=== PATIENT | female | born 1970 | race Asian ===

== ENCOUNTER 2017-10-10 13:18 | Inpatient (IN) | payer OTHER ==
[~2017-10-10] VITALS: Ht 162.6 cm; Wt 91.8 kg
[2017-10-10 13:22] VITALS: Ht 162.6 cm; Wt 91.8 kg
[2017-10-10 14:13] LABS: CALCIUM 8.4 mg/dL (8.5-10.1); CARBON DIOXIDE 26.5 mmol/L (21-32); CHLORIDE SERUM 105 mmol/L (98-107); GFR1 > 60 mL/min; GLUCOSE SERUM 176 mg/dL (74-106); POTASSIUM SERUM 3.7 mmol/L (3.5-5.1); SODIUM SERUM 142 mmol/L (136-145)
[2017-10-10 14:18] LABS: ALBUMIN 3.6 g/dL (3.4-5.0); ALKALINE PHOSPHATASE 75 U/L (46-116); ALT/SGPT 33 U/L (14-59); AST/SGOT 21 U/L (15-37)
[2017-10-10 14:23] LABS: BASOPHIL % 0.8 % (0-2); PLATELET COUNT 219 x10^3mcL (130-400); RED CELL DISTRIBUTION WIDTH 13.1 % (11.5-14.5)
[2017-10-10] MEDS ORDERED: AMITRIPTYLINE H10 MG (16:17)
[2017-10-10 17:04] VITALS: BP 134/85
[2017-10-10 17:15] LABS: PHOSPHOROUS 3.7 mg/dL (2.5-4.9)
[2017-10-10 17:16] LABS: CHOLESTEROL/HDL RATIO 7.2
[2017-10-10 17:21] LABS: T3 TOTAL 1.18 ng/mL
[2017-10-10 17:25] LABS: FREE T4 1.03 ng/dL (0.76-1.46); FREE THYROXINE INDEX 2.6 ug/dL (1.4-4.5); T4(THYROXINE) 7.3 ug/dL (4.7-13.3)
[2017-10-10 17:45] VITALS: BP 143/94
[2017-10-10 19:14] VITALS: BP 143/94
[2017-10-10 21:51] VITALS: BP 109/55
[2017-10-11 05:41] VITALS: BP 93/54
[2017-10-11 08:10] LABS: microscopic required? YES; urine erythrocyte NEGATIVE (NEGATIVE)
[2017-10-11 08:11] LABS: BASOPHIL % 1.2 % (0-2); PLATELET COUNT 195 x10^3mcL (130-400)
[2017-10-11 08:29] LABS: AMPHETAMINE QUAL UR NONE DETECTED (NEG <=1000)
[2017-10-11 08:35] LABS: CALCIUM 8.2 mg/dL (8.5-10.1); CARBON DIOXIDE 24.6 mmol/L (21-32); CHLORIDE SERUM 108 mmol/L (98-107); CREATININE SERUM 0.8 mg/dL (0.6-1.0); GFR1 > 60 mL/min; GLUCOSE SERUM 119 mg/dL (74-106); POTASSIUM SERUM 3.8 mmol/L (3.5-5.1); SODIUM SERUM 143 mmol/L (136-145)
[2017-10-11 08:55] VITALS: BP 108/67
[2017-10-11 09:00] VITALS: BP 105/56
[2017-10-11 13:06] VITALS: BP 106/64
[2017-10-11 16:49] VITALS: BP 104/58
[2017-10-11 21:28] VITALS: BP 115/55
[2017-10-12 06:02] LABS: BASOPHIL % 1.1 % (0-2); PLATELET COUNT 189 x10^3mcL (130-400)
[2017-10-12 06:07] VITALS: BP 96/51
[2017-10-12 06:46] LABS: CALCIUM 8.2 mg/dL (8.5-10.1); CARBON DIOXIDE 26.6 mmol/L (21-32); CHLORIDE SERUM 107 mmol/L (98-107); CREATININE SERUM 0.9 mg/dL (0.6-1.0); GFR1 > 60 mL/min; GLUCOSE SERUM 109 mg/dL (74-106); POTASSIUM SERUM 4.1 mmol/L (3.5-5.1); SODIUM SERUM 139 mmol/L (136-145)
[2017-10-12 14:41] VITALS: BP 143/80
[2017-10-12 16:47] VITALS: BP 143/80
[2017-10-12] MEDS ORDERED: LIPI20 PO (17:47)
[2017-10-12] MEDS ORDERED: NEU100 PO (17:48)
[2017-10-12] MEDS ORDERED: GLU500 PO (17:49)
[2017-10-12 17:53] VITALS: BP 140/76
[2017-10-12 17:54] VITALS: BP 140/63
== END 2017-10-12 18:50 | disposition home or self-care (01) | DRG 48 ==
LOC: ED 13:18 → DU 15:12
PROVIDERS: Emergency Medicine; Family Medicine
DX: G90.8 Other disorders of autonomic nervous system (principal); E66.01 Morbid (severe) obesity due to excess calories; K21.9 Gastro-esophageal reflux disease without esophagitis; M19.90 Unspecified osteoarthritis, unspecified site; F17.210 Nicotine dependence, cigarettes, uncomplicated; G89.29 Other chronic pain; F41.1 Generalized anxiety disorder; M25.562 Pain in left knee; E11.9 Type 2 diabetes mellitus without complications; E78.5 Hyperlipidemia, unspecified; M25.561 Pain in right knee; L40.9 Psoriasis, unspecified; Z90.49 Acquired absence of other specified parts of digestive tract; Z82.49 Family history of ischemic heart disease and other diseases of the circulatory system; Z83.3 Family history of diabetes mellitus; Z82.3 Family history of stroke; Z68.35 Body mass index [BMI] 35.0-35.9, adult
CPT/HCPCS: 83880; 84439; A9500; J2785; J7030; J7613; Q0092

== ENCOUNTER 2018-10-05 20:48 | Emergency (ER) | payer OTHER ==
[~2018-10-05] VITALS: Ht 160 cm; Wt 106.1 kg
[~2018-10-05 20:48] MED LIST: AMITRIPTYLINE H10 MG; GLU500 PO; LIPI20 PO; NEU100 PO
[2018-10-05 20:54] VITALS: Ht 160 cm; Wt 106.1 kg
[2018-10-05 22:10] VITALS: BP 125/88
== END 2018-10-05 22:10 | disposition home or self-care (01) ==
LOC: ED 20:48
DX: J06.9 Acute upper respiratory infection, unspecified (principal); J20.9 Acute bronchitis, unspecified; G89.29 Other chronic pain; M25.561 Pain in right knee; M25.562 Pain in left knee; F17.210 Nicotine dependence, cigarettes, uncomplicated; M19.90 Unspecified osteoarthritis, unspecified site
CPT/HCPCS: J7613

== ENCOUNTER 2019-03-09 06:08 | Emergency (ER) | payer OTHER ==
[~2019-03-09] VITALS: Ht 160 cm; Wt 87.1 kg
[2019-03-09 06:16] VITALS: Ht 160 cm; Wt 87.1 kg
[2019-03-09 08:31] LABS: CALCIUM 7.9 mg/dL (8.5-10.1); CARBON DIOXIDE 24.4 mmol/L (21-32); CHLORIDE SERUM 106 mmol/L (98-107); CREATININE SERUM 0.9 mg/dL (0.6-1.0); GFR1 > 60 mL/min; GLUCOSE SERUM 133 mg/dL (74-106); POTASSIUM SERUM 3.8 mmol/L (3.5-5.1); SODIUM SERUM 143 mmol/L (136-145)
[2019-03-09 08:37] LABS: ALBUMIN 3.5 g/dL (3.4-5.0); ALKALINE PHOSPHATASE 89 U/L (46-116); ALT/SGPT 35 U/L (14-59); AST/SGOT 17 U/L (15-37); BILIRUBIN TOTAL 0.5 mg/dL (0.20-1.00); TOTAL PROTEIN, SERUM 7.2 g/dL (6.4-8.2)
[2019-03-09 09:00] LABS: BASOPHIL % 1.5 % (0-2); PLATELET COUNT 228 x10^3mcL (130-400); RED CELL DISTRIBUTION WIDTH 13.4 % (11.5-14.5)
[2019-03-09 09:55] VITALS: BP 102/59
[2019-03-09 10:07] LABS: microscopic required? YES; urine erythrocyte TRACE (NEGATIVE)
== END 2019-03-09 09:55 | disposition home or self-care (01) ==
LOC: ED 06:08
PROVIDERS: Specialist
DX: N39.0 Urinary tract infection, site not specified (principal); E11.9 Type 2 diabetes mellitus without complications; Z90.49 Acquired absence of other specified parts of digestive tract
CPT/HCPCS: 82962; 87491; 87591; J1885; Q0162

== ENCOUNTER 2019-05-31 07:33 | Emergency (ER) | payer OTHER ==
[~2019-05-31] VITALS: Ht 160 cm; Wt 85.7 kg
[2019-05-31 07:56] VITALS: BP 132/80; Ht 160 cm; Wt 85.7 kg
== END 2019-05-31 08:30 | disposition home or self-care (01) ==
LOC: ED 07:33
DX: N39.0 Urinary tract infection, site not specified (principal); E11.9 Type 2 diabetes mellitus without complications; M19.90 Unspecified osteoarthritis, unspecified site; G89.29 Other chronic pain
CPT/HCPCS: 87491; 87591

== ENCOUNTER 2019-06-11 14:53 | Emergency (ER) | payer OTHER ==
[~2019-06-11] VITALS: Ht 160 cm; Wt 86.6 kg
[2019-06-11 14:55] VITALS: Ht 160 cm; Wt 86.6 kg
[2019-06-11 16:23] VITALS: BP 140/95
== END 2019-06-11 16:23 | disposition home or self-care (01) ==
LOC: ED 14:53
DX: S09.8XXA Other specified injuries of head, initial encounter (principal); E11.9 Type 2 diabetes mellitus without complications; M19.90 Unspecified osteoarthritis, unspecified site; W01.198A Fall on same level from slipping, tripping and stumbling with subsequent striking against other object, initial encounter; Y93.E9 Activity, other interior property and clothing maintenance; Y92.89 Other specified places as the place of occurrence of the external cause; Y99.8 Other external cause status

== ENCOUNTER 2019-12-22 08:11 | Emergency (ER) | payer OTHER ==
[~2019-12-22] VITALS: Ht 157.5 cm; Wt 80.7 kg
[2019-12-22 08:18] VITALS: BP 142/96; Ht 157.5 cm; Wt 80.7 kg
== END 2019-12-22 09:01 | disposition home or self-care (01) ==
LOC: ED 08:11
DX: L40.9 Psoriasis, unspecified (principal); E11.9 Type 2 diabetes mellitus without complications; G89.29 Other chronic pain; M25.562 Pain in left knee; M25.561 Pain in right knee; M19.90 Unspecified osteoarthritis, unspecified site